=== PATIENT | female | born 1990 | race Caucasian/White ===

== ENCOUNTER 2017-04-29 22:23 | Inpatient (IN) | payer OTHER ==
[~2017-04-29] VITALS: Ht 162.6 cm; Wt 89.0 kg
[2017-04-29 23:03] VITALS: BP 108/70; PULSE 72; RESP 18
[2017-04-29 23:04] VITALS: Ht 162.6 cm; Wt 89.0 kg
[2017-04-29] MEDS ORDERED: PREN1TAB17 PO (23:05)
[2017-04-29] MEDS ORDERED: LACTATED RINGER'S 1,000 ML IV SCH (23:05)
[2017-04-29] MEDS ORDERED: FER325 PO (23:05)
[2017-04-29] MEDS ORDERED: OXYTOCIN 30 UNITS/LR 500 ML IV SCH ×3 (23:30)
[2017-04-29] MEDS ORDERED: CARBOPROST 250 MCG INJ IM PRN (23:30)
[2017-04-29] MEDS ORDERED: OXYTOCIN 30 UNITS/LR 500 ML IV PRN (23:30)
[2017-04-29] MEDS ORDERED: LIDOCAINE 1% (MPF) 30 ML INJ INJ PRN (23:30)
[2017-04-29] MEDS ORDERED: IBUPROFEN 600 MG TAB PO PRN (23:30)
[2017-04-29] MEDS ORDERED: BUTORPHANOL 2 MG INJ IV PRN (23:30)
[2017-04-29] MEDS ORDERED: LACTATED RINGER'S 1,000 ML IV PRN (23:30)
[2017-04-29] MEDS ORDERED: METHYLERGONOVINE 0.2 MG INJ IM PRN (23:30)
[2017-04-29] MEDS ORDERED: MISOPROSTOL 200 MCG TAB PR PRN (23:30)
[2017-04-29 23:44] LABS: BASOPHILS % 0.5 % (0.0-2.0); EOSINOPHILS # 0.1 10^3/ul (0.0-0.5); HEMOGLOBIN 10.7 g/dl (12.0-16.0); LYMPHOCYTES # 1.7 10^3/ul (0.8-2.9); LYMPHOCYTES % 18.9 % (15.0-51.0); MEAN CORPUSCULAR HEMOGLOBIN 32.4 pg (29.0-33.0); MEAN CORPUSCULAR HGB CONC 33.4 g/dl (32.0-37.0); MEAN PLATELET VOLUME 11.6 fl (7.4-10.4); MONOCYTE # 0.5 10^3/ul (0.3-0.9); MONOCYTES % 6.2 % (0.0-11.0); NEUTROPHIL # 6.4 10^3/ul (1.6-7.5); NEUTROPHILS % 72.9 % (39.0-77.0); PLATELET COUNT 212 10^3/UL (140-415); RED CELL DISTRIBUTION WIDTH 13.4 % (11.5-14.5); WHITE BLOOD COUNT 8.8 10^3/ul (4.8-10.8)
[2017-04-29 23:58] LABS: INR 0.87; PROTIME 11.8 Sec (12.2-14.2); PT RATIO 0.9
[2017-04-29 23:59] LABS: PARTIAL THROMBOPLASTIN TIME 27.4 Sec (25.0-35.0)
--- NOTE | 2017-04-29 23:59 | RADRPT ---
PROCEDURE: Obstetrical ultrasound, limited. CLINICAL INDICATION: Pelvic pain. TECHNIQUE: Multiple sonographic images of the pelvis were obtained using transabdominal technique . Images were obtained with rothman scale and color Doppler. The images were reviewed on a PACS works tation. COMPARISON: No prior studies are available for comparison. FINDINGS: There is a single living intrauterine gestation with the fetus in a vertex presentation. hear t tones of 159 beats per minute are identified. The placenta is posterior in location, grade 2. Th ere is no evidence of placenta previa or abruption. Measurements were made in order to determine age. The results are as follows: BPD =9.52 cm HC =34.35 cm AC =36.95 cm FL =7.56 cm. Estimated gestational age of approximately 39 weeks and 4 days. The estimated date of delivery is 05/02/2017. The EFW = 3962 +/- 594 grams. Estimated weight percentage equals 66.1%. IMPRESSION: Single viable intrauterine gestation of approximately 39 weeks and 4 days, with an ultrasound JUAN F of 05/02/2017. .Liang Maher MD, MD Date Time Electronically viewed and signed by .Liang Maher MD, MD on 04/29/2017 23:58 .T/
--- NOTE | 2017-04-30 06:17 | LDN ---
Date/Time of Note Date/Time of Note DATE: 04/30/17 TIME: 06:15 Delivery Summary of a vable baby boy weighing 4220 grams, or 9# 5 oz, 20.5" long, and with Apgars of 9/9. Weeks of Gestation 41w Placenta Delivered: Spontaneously Meconium: none Episiotomy: No Perineal laceration: 1 Laceration repair: First degree perineal laceration repaired with 2-0 chromic. Anesthesia type: Epidural Estimated blood loss: 200 Sponge & Needle done & correct: Yes All needle counts correct: Yes Any foreign bodies felt in the: No (vagina) Problems: Delivery Information Sex Infant Sex: male Apgars 1 Minute: 9 5 Minute: 9 Suctioning Nose & mouth suctioned at colleen: Yes Delee suction performed: No Umbilical Cord Umbilical cord with: 3 Vessels Cord presentations: no nuchal cord Cord Blood was obtained: Yes Mother & Baby Disposition Disposition Mom & Baby to Maternity; Good: Yes Baby to NICU: No TAHIR MONTERO MD Apr 30, 2017 06:17
--- NOTE | 2017-04-30 06:26 | HP ---
Date/Time of Note Date/Time of Note DATE: 04/30/17 TIME: 06:18 OB - History Hx of Present Free Text/Dictation 27 y.o. with an IUP at 41 weeks came in with c/o contractions and was found to be 3 cm dilated so was admitted and started on Pitocin augmentation. Chief Complaint: Contractions. Estimated Due Date: Apr 23, 2017 : 2 Para: 1 Care: Good Care Ultrasounds: Normal mid trimester US Abnormal Ultrasound Findings: US done today with an EFW of 3900 grams. Obstetrical Complications: None Medical Complications: None Other Concerns: H/o macrosomia as prior she delivered a 9# baby. PMHx: none. PSHx: none. NKDA. Past Family/Social History * Past Medical, Surgical, Family and Obstetric Histories reviewed from chart. Blood Type: O+ Rubella: immune RPR/VDRL: Negative GBS Status: Negative HBsAG: Negative OB Admission Exam Vital Signs Vital Signs Vital Signs Date Time Temp Pulse Resp B/P Pulse Ox O2 Delivery O2 Flow Rate FiO2 04/29/17 23:03 98.3 72 18 108/70 Room Air Physical Exam HEENT: WNL Heart: Rhythm Normal Lungs: Clear Abdomen: WNL Extremities: Normal Reflexes: Normal Cervical Dilatation: 3cm Effacement: 75% Station: -2 Membranes: Intact Amniotic Fluid: Clear Heart Rate: 140's Accelerations: Accelerations Present Decelerations: No Decelerations Varibility: Moderate Contractions on Admission: 6-10 Minutes Apart Last 72 hours Lab Results CBC & BMP 04/29/17 23:20 OB Assessment/Plan Reason for admission: active labor Other Assessment: Macrosomia Plan: Other (Augmentation) Induction Method: per Pitocin Protocol TAHIR MONTERO MD Apr 30, 2017 06:26
[2017-04-30] MEDS ORDERED: METHYLERGONOVINE 0.2 MG INJ IM PRN (06:30)
[2017-04-30] MEDS ORDERED: OXYTOCIN 30 UNITS/LR 500 ML IV PRN (06:30)
[2017-04-30] MEDS ORDERED: CARBOPROST 250 MCG INJ IM PRN (06:30)
[2017-04-30] MEDS ORDERED: LANOLIN 7 GM TUBE TOP PRN (06:30)
[2017-04-30] MEDS ORDERED: BENZOCAINE 20% 56 ML SPRAY TOP PRN (06:30)
[2017-04-30] MEDS ORDERED: HYDROCODONE/APAP (5/325) TAB PO PRN (06:30)
[2017-04-30] MEDS ORDERED: MISOPROSTOL 200 MCG TAB PR PRN (06:30)
[2017-04-30 09:00] VITALS: BP 113/70; PULSE 56; RESP 20
[2017-04-30] MEDS: OXYTOCIN 30 UNITS/LR 500 ML IV SCH ×2 (10:09→10:13)
[2017-04-30] MEDS: LACTATED RINGER'S 1,000 ML IV* SCH ×2 (12:20→14:09)
[2017-04-30 12:30] VITALS: BP 118/70; PULSE 58; RESP 18
[2017-04-30] MEDS: IBUPROFEN 600 MG TAB PO SCH ×3 (12:45→23:49)
[2017-04-30 16:00] VITALS: BP 109/57; PULSE 61; RESP 20
[2017-04-30 20:00] VITALS: BP 96/55; PULSE 69; RESP 18
[2017-05-01 04:10] VITALS: BP 113/61; PULSE 56; RESP 18
[2017-05-01] MEDS: IBUPROFEN 600 MG TAB PO SCH ×3 (05:41→17:50)
[2017-05-01 07:45] VITALS: BP 104/58; PULSE 52; RESP 20
[2017-05-01] MEDS: LACTATED RINGER'S 1,000 ML IV* SCH (08:44)
[2017-05-01 10:08] LABS: BASOPHIL # 0.1 10^3/ul (0.0-0.1); BASOPHILS % 0.5 % (0.0-2.0); EOSINOPHILS # 0.2 10^3/ul (0.0-0.5); EOSINOPHILS % 1.4 % (0.0-7.0); HEMOGLOBIN 10.9 g/dl (12.0-16.0); LYMPHOCYTES # 2.1 10^3/ul (0.8-2.9); LYMPHOCYTES % 19.4 % (15.0-51.0); MEAN CORPUSCULAR HEMOGLOBIN 31.1 pg (29.0-33.0); MEAN CORPUSCULAR HGB CONC 31.1 g/dl (32.0-37.0); MEAN CORPUSCULAR VOLUME 99.7 fl (82.0-101.0); MEAN PLATELET VOLUME 11.4 fl (7.4-10.4); MONOCYTE # 0.5 10^3/ul (0.3-0.9); NEUTROPHIL # 7.8 10^3/ul (1.6-7.5); NEUTROPHILS % 73.3 % (39.0-77.0); PLATELET COUNT 209 10^3/UL (140-415); RED BLOOD COUNT 3.51 10^6/ul (4.20-5.40); RED CELL DISTRIBUTION WIDTH 14.1 % (11.5-14.5); WHITE BLOOD COUNT 10.7 10^3/ul (4.8-10.8)
[2017-05-01 15:24] VITALS: BP 109/59; PULSE 56; RESP 18
[2017-05-01] MEDS ORDERED: INFLUENZA VIRUS VACCINE 0.5 ML SYG IM* ONE (17:00)
--- NOTE | 2017-05-01 17:14 | QN ---
Documentation Comment Post day 1 Afebrile VSs Soft uterus firm lochia normal extremities normal relation encouraged Plan of a.m. discharge discussed with the patient NAFISA ARVIZU MD May 01, 2017 17:14
[2017-05-01 20:00] VITALS: BP 105/59; PULSE 59; RESP 18
[2017-05-02 04:00] VITALS: BP 110/66; PULSE 70; RESP 18
[2017-05-02] MEDS: IBUPROFEN 600 MG TAB PO SCH ×3 (05:35→12:10)
[2017-05-02 08:00] VITALS: BP 106/64; PULSE 65; RESP 18
[2017-05-02] MEDS ORDERED: DIPHTH/TET/ACEL PERTUSS (ADULT) 0.5 ML VIAL IM* ONE (09:00)
--- NOTE | 2017-05-02 14:28 | DS ---
Date/Time of Note Date/Time of Note DATE: 05/02/17 TIME: 14:11 Discharge Summary Admission/Discharge Info Admit Date/Time Apr 29, 2017 at 23:00 Discharge Date/Time 2016 at 1450 Discharge Diagnosis Post normal vaginal delivery day 2 Patient Condition: Good Procedures Normal vaginal delivery Hx of Present Illness Term in labor Hospital Course Satisfactory uneventful Home Meds Reported Medications Ferrous Sulfate* (Ferrous Sulfate*) 325 Mg Tabec, 325 MG PO BID, TAB 04/29/17 Vit-Iron Fumarate-FA ( Tablet) 1 Each Tablet, 1 TAB PO DAILY, TAB 04/29/17 Follow-up Plan Post instruction given recommended to make appointment to be seen at the clinic in 2 weeks Primary Care Provider Not On Staff Doctor Time spent on discharge: < 30 minutes NAFISA ARVIZU MD May 02, 2017 14:13
== END 2017-05-02 15:35 | disposition home or self-care (01) | DRG 775 ==
LOC: OBT 22:23 → L-D 22:23 → OBT 23:00 → PP1 04-30 08:49
PROVIDERS: ADMIT Obstetrics & Gynecology; ATTEND Obstetrics & Gynecology
PROC: 10E0XZZ Delivery of Products of Conception, External Approach (ICD-10-PCS; principal; 2017-04-30)
PROC: 0HQ9XZZ Repair Perineum Skin, External Approach (ICD-10-PCS; 2017-04-30)
DX: O48.0 Post-term pregnancy (principal); O36.63X0 Maternal care for excessive fetal growth, third trimester, not applicable or unspecified; Z37.0 Single live birth; Z3A.41 41 weeks gestation of pregnancy; O70.0 First degree perineal laceration during delivery
CPT/HCPCS: 36415; 76816; 85025; 85610; 85730; 86592; 86900; 86901; 87340; 90686; 90715; G0463; J0595; J2590; J7120

== ENCOUNTER 2018-05-07 09:50 | Emergency (ER) | END 2018-05-07 12:04 | disposition home or self-care (01) ==